=== PATIENT | female | born 2005 | race Two or more races ===

== ENCOUNTER 2024-10-17 23:20 | Emergency (ER) | payer BC, OTHER ==
[~2024-10-17] VITALS: Ht 165.1 cm; Wt 59.8 kg
[2024-10-17 23:45] VITALS: BP 116/66; TEMP 98.3
--- NOTE | 2024-10-18 | ED.PDOC ---
History of Present Illness HPI Comments 18-year-old female who came to ER due to syncope. Patient denies any medical problems. States she was standing for a prolonged period of time, waiting outside the restaurant, when she started blurry vision, she felt flushed, sense of imbalance, dizzy, lightheaded, and had a syncopal attack, hitting her head on the floor. She denies any loss of consciousness, states she remembers everything. Patient currently complaining of headaches and dizziness still. Chief Complaint: Syncope Time Seen by MD: 23:59 Reviewed Notes: Nurses Notes Allergies: Coded Allergies: NO KNOWN ALLERGIES (Unverified , 10/17/24) Information Source: Patient Mode of Arrival: Ambulatory Severity: Moderate Timing: Minutes Duration: Minutes Review of Systems REVIEW OF SYSTEMS: No fever, no chills, or fatigue HEENT: No sore throat, no earache, no congestion, no neck pain. Cardiac: No chest pain. No palpitations. Lungs: No shortness of breath, no cough. GI: No nausea, no vomiting, no diarrhea, no constipation, no abdominal pain : No dysuria, frequency, or urgency. No hematuria. Musculoskeletal: No joint pain , no joint swelling, no extremity edema. Skin: No rash, no itching. Neuro: (+) headache, (+) dizziness, no weakness (+) syncope Vital Signs Vital Signs Date Time Temp Pulse Resp B/P (MAP) Pulse Ox O2 Delivery O2 Flow Rate FiO2 10/18/24 00:07 92 10/17/24 23:45 98.3 20 116/66 (83) 97 98.3 Physical Exam General: Awake, alert and oriented. No acute distress. Skin: Skin in warm, dry and intact. Appropriate color for ethnicity. Nailbeds pink with no cyanosis. HEENT: The head is normocephalic and atraumatic. Conjunctivae are clear without exudates or hemorrhage. Sclera is non-icteric. EOM are intact. No signs of nystagmus. Eyelids are normal in appearance without swelling or lesions. Oral mucosa is pink and moist. PERRLA Neck: The neck is supple with normal range of motion. No JVD. Cardiac: Heart rate and rhythm are normal. No murmurs, gallops, or rubs are auscultated. Respiratory: No signs of respiratory distress. Lung sounds are clear in all lobes bilaterally without rales, rhonchi, or wheezes. Abdominal: Abdomen is soft, non-tender without distention. Bowel sounds are present and normoactive in all four quadrants. Extremities: Upper and lower extremities are atraumatic in appearance without deformity or edema. Neurological: The patient is awake, alert and oriented to person, place, and time with normal speech. Speech is clear. There is no facial asymmetry. Normal gait. Psychiatric: Appropriate mood and affect. Good judgement and insight. Past Medical History PAST MEDICAL HISTORY: Denies Surgical History: Denies all surgeries SHOE SHINER History: Denies all SHOE SHINER Hx Family History Family History: Reviewed,noncontributory to illness Social History Smoker: Non-Smoker Alcohol: Denies ETOH Use Drugs: Denies Drug Use Lives In: Home Was a procedure done? Was a procedure done?: No EKG EKG : Pulse Rate (adult): 92 Comments Ectopic atrial rhythm, left anterior fascicular block Differential Dx Considerations may include: Differential diagnoses considered include but are not limited to cardiac structural disease, arrhythmia, acute coronary syndrome, orthostasis, pulmonary embolism, dissection, seizure, basilar stroke, other. X-Ray, Labs, Meds, VS Vital Signs Date Time Temp Pulse Resp B/P (MAP) Pulse Ox O2 Delivery O2 Flow Rate FiO2 10/18/24 00:07 92 10/18/24 00:03 92 10/17/24 23:45 98.3 99 20 116/66 (83) 97 98.3 Lab Test 10/18/24 00:07 10/17/24 23:51 Range/Units White Blood Count 5.6 4.4-10.8 10^3/uL Red Blood Count 4.58 4.0-5.20 10^6/uL Hemoglobin 14.1 12.2-16.2 g/dL Hematocrit 41.7 36.0-46.0 % Mean Corpuscular Volume 91.0 80.0-100.0 fL Mean Corpuscular Hemoglobin 30.7 28.0-32.0 pg Mean Corpuscular Hemoglobin Concent 33.7 32.0-36.0 g/dL Red Cell Distribution Width 12.9 11.8-14.3 % Platelet Count 183 140-450 10^3/uL Mean Platelet Volume 7.9 6.9-10.8 fL Neutrophils (%) (Auto) 54.9 37.0-80.0 % Lymphocytes (%) (Auto) 36.6 10.0-50.0 % Monocytes (%) (Auto) 4.6 0.0-12.0 % Eosinophils (%) (Auto) 3.2 0.0-7.0 % Basophils (%) (Auto) 0.7 0.0-2.0 % Neutrophils # (Auto) 3.1 1.6-8.6 10 ^3/uL Lymphocytes # (Auto) 2.1 0.4-5.4 10 ^3/uL Monocytes # (Auto) 0.3 0-1.3 10 ^3/uL Eosinophils # (Auto) 0.2 0-0.8 10 ^3/uL Basophils # (Auto) 0 0-0.2 10 ^3/uL Nucleated Red Blood Cells 0.0 % Sodium Level 137 136-145 mmol/L Potassium Level 4.1 3.5-5.1 mmol/L Chloride Level 102 98-107 mmol/L Carbon Dioxide Level 27 20-31 mmol/L Anion Gap 8 5-15 Blood Urea Nitrogen 18 9-23 mg/dL Creatinine 0.83 0.550-1.02 mg/dL Glomerular Filtration Rate Calc 103 >90 mL/min BUN/Creatinine Ratio 21.7 H 10.0-20.0 Serum Glucose 109 H 74-106 mg/dL Calcium Level 9.1 8.7-10.4 mg/dL Troponin I High Sensitivity < 3 L </=34 ng/L POC Glucose 136 H 70-106 mg/dl Current Medications Medications (Trade) Dose Ordered Sig/Cee Route Start Time Stop Time Status Last Admin Sodium Chloride 1,000 ml @ 1,000 mls/hr Q1H ONCE IV 10/18/24 00:00 10/18/24 00:59 10/18/24 00:22 Acetaminophen (Tylenol Tablet) 650 mg ONCE ONCE PO 10/18/24 00:00 10/18/24 00:01 DC 10/18/24 00:22 ATIENT: DEMI MARIA ACCT: [id number] UNIT: [id number] : 2005 LOC: ER ROOM / BED: / AGE / SEX: 18 / F ADM STATUS: REG ER SERVICE 3210 ORDERING PHYSICIAN: SHERRELL FORD MD PROCEDURE(s): CXR1 - CHEST XRAY 1 VIEW REASON: syncope ORDER NUMBER(s): [id number], ACCESSION NUMBER(s): [id number] CHEST RADIOGRAPH Indication: syncope Technique: Single frontal view of the chest was obtained COMPARISON: None FINDINGS: Lines and Tubes: None Lungs: Clear Pleura: No effusion. No pneumothorax. Cardiomediastinal contours: Unremarkable IMPRESSION: No abnormality. ATED BY: INO SUMMERS MD DICTATED DATE/TIME: 10/18/2423 SIGNED BY: INO SUMMERS MD SIGNED DATE/TIME: 10/18/2423 CC: PATIENT: DEMI MARIA ACCT: [id number] UNIT: [id number] : 2005 LOC: ER ROOM / BED: / AGE / SEX: 18 / F ADM STATUS: REG ER SERVICE ORDERING PHYSICIAN: SHERRELL FORD MD PROCEDURE(s): HWOCT - HEAD WITHOUT CONTRAST REASON: head injury, syncope ORDER NUMBER(s): [id number], ACCESSION NUMBER(s): [id number] CT HEAD WITHOUT CONTRAST INDICATION: head injury, syncope COMPARISON: None TECHNIQUE: CT of the head without intravenous contrast. RADIATION DOSE: CTDIvol: mGy, DLP: mGy*cm FINDINGS: There is no evidence of intracranial hemorrhage, infarct, extra-axial collection, mass effect, midline shift, herniation or hydrocephalus. The ventricles, sulci and cisterns are normal. The coughlin-white differentiation is normal. Visualized paranasal sinuses and mastoid air cells are clear. Soft tissues and osseous structures are unremarkable. IMPRESSION: No intracranial abnormality. ATED BY: INO SUMMERS MD DICTATED DATE/TIME: 10/18/2435 SIGNED BY: INO SUMMERS MD SIGNED DATE/TIME: 10/18/2435 CC: Images Reviewed?: Images reviewed and evaluated by me (Independent interpretation of chest x-ray: No acute disease) Time of 1ST Reevaluation: 23:56 Reevaluation 1ST: Unchanged Patient Education/Counseling: Need For Follow Up Family Education/Counseling: No Family Present Departure 1 Departure Time of Disposition: 00:46 Impression: Primary Impression: Syncope Additional Impression: Head injury Disposition: 01 HOME / SELF CARE / HOMELESS Condition: Stable Additional Instructions: ED DISCHARGE INSTRUCTIONS Instructions: Please read all instructions provided in this packet carefully. Although you have been discharged from the Emergency Department, this does not m be that you have a "clean bill of health". No definitive diagnosis for your symptoms has been made today. It is possible that you are in the process of developing a serious illness. This is why you must return to the ED without fail if any new or worsening symptoms (especially if your symptoms include chest pain, trouble breathing, abdominal pain, fever, headache, confusion, trouble seeing, or trouble walking) It is also very important that you see a primary care doctor within the next 3-5 days to follow up. If you are unable to get an appointment, return to the ED for re-evaluation. Head Injury: Care Instructions Table of Contents Overview How can you care for yourself at home? When should you call for help? Credits Overview Most injuries to the head are minor. Bumps, cuts, and scrapes on the head and face usually heal well and can be treated the same as injuries to other parts of the body. Although it's rare, once in a while a more serious problem shows up after you are home. So it's good to be on the lookout for symptoms for a day or two. Follow-up care is a urrutia part of your treatment and safety. Be sure to make and go to all appointments, and call your doctor if you are having problems. It's also a good idea to know your test results and keep a list of the medicines you take. How can you care for yourself at home? Follow your doctor's instructions. The doctor will tell you if you need someone to watch you closely for the next 24 hours or longer. Take it easy for the next few days or more if you are not feeling well. Ask your doctor when it's okay for you to go back to activities like driving a car, riding a bike, or operating machinery. When should you call for help? Call 911 anytime you think you may need emergency care. For example, call if: You have a seizure. You passed out (lost consciousness). You are confused or can't stay awake. You have a headache that gets worse and does not go away. You have new vision changes or one pupil (the black part in the middle of the eye) that is larger than the other. You have slurred speech, balance problems, or decreased coordination. Call your doctor now or seek immediate medical care if: You have new or worse vomiting. You feel less alert. You have new weakness or numbness in any part of your body. You have new symptoms, such as unclear thinking or changes in mood. Watch closely for changes in your health, and be sure to contact your doctor if: You do not get better as expected. Credits for Head Injury: Care Instructions Current as of: May 29, 2023 Author: Boutir Staff Comments 18-year-old female with syncopal episode, head injury and headache. Patient is well-appearing, nontoxic. Patient is neurologically intact. Patient's symptoms improved during the ED observation. Vital signs stable. Lab and imaging results reviewed and are not urgently actionable. Patient is felt stable for discharge home. Patient advised to follow up with primary care provider promptly and return to the emergency department with any new, worsening or concerning symptoms. I reviewed the following notes from the pt's past medical encounters: N/A The following tests were ordered, and results were reviewed by me: (See diagnostic results section) The following test were independently interpreted by me: EKG, chest x-ray Additional information was gathered from interviewing the following independent historians: N/A I reviewed and agreed with the following test results read by other providers: Chest x-ray, CT head I discussed treatments and results with patient Decision regarding hospitalization or escalation of hospital level of care: Risks and benefits of admission for further treatment of patient's condition was considered however due to patient's stable condition patient will be discharged to follow up closely or return to care for worsening of condition or inability to follow up. Critical Care Note Critical Care Time?: No Stability Stability form required: No Heart Score Heart Score: Heart Score Response (Comments) Value History N/A 0 EKG N/A 0 Age N/A 0 Risk Factors N/A 0 Troponin N/A 0 Total 0 I personally scribed for SHERRELL FORD MD ([email or web address]) on 10/18/24 at 00:00. Electronically submitted by Han Cabrera ([email or web address]). I personally scribed for SHERRELL FORD MD ([email or web address]) on 10/18/24 at 00:07. Electronically submitted by Han Cabrera ([email or web address]). SHERRELL FORD MD October 18, 2024 00:00
[2024-10-18 00:07] VITALS: PULSE 92
[2024-10-18 00:17] LABS: Basophils # (auto) 0 10 ^3/uL (0-0.2); Basophils % (auto) 0.7 % (0.0-2.0); Eosinophils # (auto) 0.2 10 ^3/uL (0-0.8); Eosinophils % (auto) 3.2 % (0.0-7.0); Hematocrit 41.7 % (36.0-46.0); Hemoglobin 14.1 g/dL (12.2-16.2); Lymphocytes # (auto) 2.1 10 ^3/uL (0.4-5.4); Lymphocytes % (auto) 36.6 % (10.0-50.0); Mean Corpuscular Hemoglobin 30.7 pg (28.0-32.0); Mean Corpuscular Hgb Conc. 33.7 g/dL (32.0-36.0); Monocytes # (auto) 0.3 10 ^3/uL (0-1.3); Monocytes % (auto) 4.6 % (0.0-12.0); Neutrophils # (auto) 3.1 10 ^3/uL (1.6-8.6); Neutrophils % (auto) 54.9 % (37.0-80.0); Platelet Count (auto) 183 10^3/uL (140-450); Red Blood Cells 4.58 10^6/uL (4.0-5.20); Red Cell Distribution Width 12.9 % (11.8-14.3); White Blood Cell 5.6 10^3/uL (4.4-10.8)
[2024-10-18] MEDS: ACETAMINOPHEN 325 MG TAB PO ONE (00:22)
[2024-10-18] MEDS: SODIUM CHLORIDE 0.9% 1,000 ML IV ONE (00:22)
[2024-10-18 00:25] LABS: Chloride 102 mmol/L (98-107); Potassium 4.1 mmol/L (3.5-5.1); Sodium 137 mmol/L (136-145)
[2024-10-18 00:26] LABS: Anion Gap 8 (5-15); Calcium 9.1 mg/dL (8.7-10.4); Carbon Dioxide 27 mmol/L (20-31)
--- NOTE | 2024-10-18 00:27 | DVH ---
CHEST RADIOGRAPH Indication: syncope Technique: Single frontal view of the chest was obtained COMPARISON: None FINDINGS: Lines and Tubes: None Lungs: Clear Pleura: No effusion. No pneumothorax. Cardiomediastinal contours: Unremarkable IMPRESSION: No abnormality.
[2024-10-18 00:31] LABS: BUN/Creatinine Ratio 21.7 (10.0-20.0); Blood Urea Nitrogen 18 mg/dL (9-23)
[2024-10-18 00:38] LABS: Glucose 109 mg/dL (74-106)
--- NOTE | 2024-10-18 00:38 | DVH ---
CT HEAD WITHOUT CONTRAST INDICATION: head injury, syncope COMPARISON: None TECHNIQUE: CT of the head without intravenous contrast. RADIATION DOSE: CTDIvol: mGy, DLP: mGy*cm FINDINGS: There is no evidence of intracranial hemorrhage, infarct, extra-axial collection, mass effect, midli ne shift, herniation or hydrocephalus. The ventricles, sulci and cisterns are normal. The coughlin-white differentiation is normal. Visualized paranasal sinuses and mastoid air cells are clear. Soft tissues and osseous structures are unremarkable. IMPRESSION: No intracranial abnormality.
[2024-10-18 01:06] VITALS: RESP 18; O2SAT 98
--- NOTE | 2024-10-19 12:41 | ECG ---
[facility] Test Date: 2024-10-18 Test Time: 00:03:28 Pat Name: DEMI GUTHRIE Department: ER Room: Gender: F Tapper Hand: KULWANT : 2005 Requested By: SHERRELL FORD Order Number: [id number] Reading MD: Rodolfo Ryder Measurements Intervals [place] Rate: 92 P: -87 NV: 135 QRS: -72 QRSD: 74 T: 13 QT: 344 QTc: 426 Interpretive Statements Ectopic atrial rhythm Left anterior fascicular block Borderline T wave abnormalities Electronically Signed On 10-21-2024 12:40:42 PDT by Rodolfo Ryder Please click the below link to view image of tracing.
== END 2024-10-18 01:45 | disposition home or self-care (01) ==
LOC: ER 23:20
DX: S09.8XXA Other specified injuries of head, initial encounter (principal); R55 Syncope and collapse; X58.XXXA Exposure to other specified factors, initial encounter; Y93.89 Activity, other specified; Y92.89 Other specified places as the place of occurrence of the external cause; Y99.8 Other external cause status
CPT/HCPCS: 36415; 70450; 71045; 80048; 82947; 84484; 85025; 93005; 96360; 99285; J7030; 82962